=== PATIENT | female | born 1950 | race Caucasian/White ===

== ENCOUNTER 2017-12-24 09:49 | Outpatient (CLI) | payer MEDICARE | END 2017-12-24 09:50 | disposition home or self-care (01) | LOC: D.MAMMO 09:49 | DX: Z12.31 Encounter for screening mammogram for malignant neoplasm of breast (principal) ==

== ENCOUNTER → 2019-05-16 09:55 | Outpatient (CLI) | payer MEDICARE ==
--- NOTE | 2019-05-20 15:28 | ST ---
PATIENT:VASILIY MATT MEDICAL RECORD: [id number] SEX: F LOCATION:[facility] ORDER #: ADMISSION DATE: 05/16/19 AGE OF PATIENT: 68 REFERRING PHYSICIAN: INTERPRETING PHYSICIAN: SCOTT DREW MD DATE OF SERVICE: 05/16/2019 INDICATION: Angina, abnormal ECG, hypertension, shortness of breath, and smoker. She was exercised on standard Lexiscan protocol with 33 mCi of sestamibi injected at peak stress, 10 mCi used previously for rest images. FINDINGS: Gated SPECT reveals a preserved ejection fraction of 49%; however, there is decreased thickening and brightening throughout the anterior segments. SPECT imaging Cardiolite was used as myocardial perfusion agent. There is a fixed perfusion defect anteriorly extending into the apex includes the basal, mid, apical anterior segments as well as the apex itself. There is no evidence of reversible ischemia. The remaining segments were with homogeneous uptake at rest and stress. OVERALL IMPRESSION: This is a stable nuclear stress test showing only a fixed perfusion defect anteroapically possibly breast artifact, possibly from a previous anteroapical myocardial infarction, either way no evidence of reversible ischemia. Ejection fraction mildly reduced, but preserved at 49%. TRANSINT:[id number] Voice Confirmation ID: [id number] DOCUMENT ID: [id number] SCOTT DREW MD at 1528 CC: ROSALBA MATT [id number] DICTATION DATE: 05/18/19 1247 HL7 DEVELOPER: 05/18/19 2304 DEP CLI 05/16/19 [id number] [place] [id number]
== END | disposition home or self-care (01) ==
LOC: D.HCCARDIO 09:55
PROVIDERS: ATTEND Internal Medicine Interventional Cardiology
DX: R09.89 Other specified symptoms and signs involving the circulatory and respiratory systems (principal); I20.9 Angina pectoris, unspecified